=== PATIENT | female | born 1960 | race Caucasian/White ===

== ENCOUNTER 2016-11-10 07:31 | Day surgery (SDC) | payer MEDICAID ==
[~2016-11-10] VITALS: Ht 172.1 cm; Wt 139.0 kg
[2016-11-10] VITALS (10 sets, daily range): BP systolic 85–115; BP diastolic 52–73; PULSE 65–76; TEMP 98.4
[2016-11-10] MEDS ORDERED: WELLBUTRIN XL300 M1 PO (08:21)
[2016-11-10] MEDS ORDERED: BUSPAR DIVIDOSE15 MG PO (08:21)
[2016-11-10] MEDS ORDERED: TOPROL XL 50MG50 MG PO (08:22)
[2016-11-10] MEDS ORDERED: ASPIRIN E.C. 8181 MG PO (08:23)
[2016-11-10] MEDS ORDERED: PRAVACHOL 20MG20 MG PO (08:23)
[2016-11-10] MEDS ORDERED: LEXAPRO20 MG PO (08:23)
[2016-11-10 09:00] LABS: HEMATOCRIT 39.4 % (37.0-47.0); MEAN CELL VOLUME 87 fl (80.0-100.0); MEAN CORPUSCULAR HEMOGLOBIN 29 pg (27.0-31.0); MEAN CORPUSCULAR HGB CONC 33 g/dl (33.0-37.0); MEAN PLATELET VOLUME 10.7 fl (7.4-10.4); PLATELET COUNT 289 K/mm3 (130-400); RED BLOOD COUNT 4.52 M/mm3 (4.10-5.30); REDCELL DISTRIBUTION WIDTH-CV 14.5 % (11.5-14.5); WHITE BLOOD COUNT 6.4 K/mm3 (4.8-10.8)
[2016-11-10 09:10] LABS: INR 1.2 (0.8-3.0)
[2016-11-10 09:28] LABS: CALCIUM 9.2 mg/dL (8.4-10.2); CREATININE, serum 0.91 mg/dL (0.52-1.25); POTASSIUM 4.3 mmol/L (3.4-5.0)
== END 2016-11-10 16:53 | disposition home or self-care (01) ==
LOC: COL.RAD 07:31
PROVIDERS: Internal Medicine Cardiovascular Disease
DX: I25.10 Atherosclerotic heart disease of native coronary artery without angina pectoris (principal); R94.39 Abnormal result of other cardiovascular function study; G47.33 Obstructive sleep apnea (adult) (pediatric); E78.2 Mixed hyperlipidemia; E66.9 Obesity, unspecified; Z77.22 Contact with and (suspected) exposure to environmental tobacco smoke (acute) (chronic)
CPT/HCPCS: C1887; C1894; J1644; J2250; J3010; Q9967